=== PATIENT | male | born 1970 | race Caucasian/White ===

== ENCOUNTER 2023-08-11 14:50 | Inpatient (IN) | payer SELFPAY ==
[2023-08-11] VITALS (13 sets, daily range): BP systolic 120–154; BP diastolic 76–103; PULSE 71–106; RESP 18–40; TEMP 37.2–37.7; O2SAT 70–94; BMI 27.5
--- NOTE | 2023-08-11 14:58 | ECG_ITS ---
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 Measurements Intervals [place] Rate: 79 P: 65 CO: 152 QRS: 56 QRSD: 100 T: 48 QT: 340 QTc: 390 Interpretive Statements SINUS RHYTHM POSSIBLE RIGHT ATRIAL ENLARGEMENT [0.25mV P-WAVE] LEFT ATRIAL ENLARGEMENT [-0.15mV P-WAVE IN V1/V2] POSSIBLE RIGHT VENTRICULAR CONDUCTION DELAY [RSR (QR) IN V1/V2] POSSIBLE LEFT VENTRICULAR HYPERTROPHY [VOLTAGE CRITERIA PLUS LAE OR QRS WIDENING] No previous ECG available for comparison Electronically Signed On 08-15-2023 13:18:11 CDT by George Maurer M.D. [id number]
--- NOTE | 2023-08-11 14:58 | XRR_ITS ---
PROCEDURE INFORMATION: Exam: XR Chest Exam date and time: 08/11/2023 3:09 PM Age: 53 years old Clinical indication: Pain; Angina pectoris; Additional info: Chest pain TECHNIQUE: Imaging protocol: Radiologic exam of the chest. Views: 1 view. COMPARISON: No relevant prior studies available. FINDINGS: Lungs: Scattered curvilinear scarring peripherally. Peribronchial wall thickening. No consolidation. Pleural spaces: Unremarkable. No pleural effusion. No pneumothorax. Heart/Mediastinum: Unremarkable. No cardiomegaly. Bones/joints: Unremarkable. XR/XR chest 1V portable [id number] IMPRESSION: Peribronchial wall thickening consistent with an infectious or inflammatory bronchitis.
[2023-08-11 16:22] LABS: Basophils % 0.2 %; Eosinophils # 0.3 10^3/uL (0.0-0.8); Eosinophils % 1.9 %; Hematocrit 46.3 % (37-53); Lymphocytes # 0.5 10^3/uL (0.8-4.8); Lymphocytes % 3.2 %; Mean Corpuscular Hemoglobin 30.6 pg (27-33); Mean Corpuscular Volume 87.5 fl (82-101); Mean Platelet Volume 9.5 fL (7.4-10.4); Monocytes # 0.9 10^3/uL (0.2-0.9); Monocytes % 5.8 %; Nucleated Red Blood Cells % 0 %; Platelet Count 246 10^3/cmm (157-399); Red Blood Count 5.29 10^6/uL (3.85-5.65); Red Cell Distribution Width 11.8 % (12.1-15.1)
[2023-08-11 16:45] LABS: Troponin(5th) Baseline 9 ng/L (0-15)
--- NOTE | 2023-08-11 16:49 | ECG_ITS ---
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 Measurements Intervals [place] Rate: 67 P: 70 IN: 161 QRS: 64 QRSD: 88 T: 53 QT: 347 QTc: 368 Interpretive Statements SINUS RHYTHM POSSIBLE RIGHT ATRIAL ENLARGEMENT [0.25mV P-WAVE] LEFT ATRIAL ENLARGEMENT [-0.15mV P-WAVE IN V1/V2] POSSIBLE RIGHT VENTRICULAR CONDUCTION DELAY [RSR (QR) IN V1/V2] Compared to ECG 08/11/2023 14:54:48 No significant changes Electronically Signed On 08-15-2023 13:45:55 CDT by George Maurer M.D. [id number]
[2023-08-11 16:53] LABS: Glucose Point of Care 115 mg/dL (70-110)
[2023-08-11 17:12] LABS: Alanine Aminotransferase 17 U/L (0-41); Albumin Level 4.5 g/dL (3.5-5.2); Alkaline Phosphatase 77 U/L (40-130); Anion Gap 14.5 (5-19); Aspartate Amino Transferase 13 U/L (0-40); Blood Urea Nitrogen 11 mg/dL (6-20); Calcium 9.3 mg/dL (8.5-10.5); Carbon Dioxide 25 mmol/L (22-29); Chloride 97 mmol/L (98-107); Glomerular Filtration Rate 101.9 mL/min (90-130); Glucose 111 mg/dL (65-115); Osmolality Calculated 274 mOsm/kg (285-295); Potassium 4.5 mmol/L (3.5-5.1); Sodium 132 mmol/L (136-145); Total Bilirubin 1.1 mg/dL (0.15-1.2); Total Protein 7.5 g/dL (6.6-8.7)
--- NOTE | 2023-08-11 17:12 | PC.NURSE ---
Pt HR in 40s, put patient on 4L of oxygen. Pt HR now in 90s. Pt states feels like oxygen is breaking things up and feels better on oxygen. Pt is spitting up secretions. Turned oxygen down to 3L.
--- NOTE | 2023-08-11 17:17 | ED_ITS ---
HPI - Chest Pain 2 General: Chief Complaint: Chest Pain Stated Complaint: SOb, chest pains Time Seen by Provider: 08/11/23 16:42 Source: patient Mode of arrival: ambulatory Limitations: no limitations History of Present Illness: 53-year-old male states that over the day has been having fever he is also been having chest pain that is been sharp in nature with increased cough and feeling short of breath he has no history of CHF he states his pain is only when he coughs or breathes he states that he has had subjective fevers at home. Denies any vomiting or diarrhea. Associated symptoms: Reports dyspnea and fever(s); Deny abdominal pain, nausea or vomiting Review of Systems 2 Const: Reports: fever(s), chills and body aches; Denies: change in appetite Eyes: Denies: blurry vision or eye discomfort ENMT: Denies: throat pain or dental pain Card: Reports: chest pain Resp: Reports: dyspnea, non-productive cough and wheezing GI: Denies: abdominal pain, nausea, vomiting or diarrhea Musc: Denies: neck pain or back pain Skin/Breast: Denies: rash Neuro: Denies: headache(s) PFSH ED 2 PFSH: Medical History No pertinent past medical history Surgical History History of vasectomy Family History Other No pertinent family history Social History Smoking and tobacco/nicotine status: former use of tobacco/nicotine Alcohol intake: current Alcohol intake frequency: 3 or more drinks per day Substance/Drug Use: never Physical Exam 2 Const: COMMON NORMALS: no acute distress, patient oriented x3 and healthy appearing HENMT: COMMON NORMALS: normocephalic and atraumatic HEAD & SCALP: n ormocephalic and atraumatic Eye: COMMON NORMALS: Equal, round and reactive pupils present and EOMs intact bilaterally PUPIL: Yes Equal, round and reactive pupils present Neck/C-Spine: COMMON NORMALS: full ROM and supple Chest: COMMONS NORMALS: normal inspection of the chest Resp: COMMON NORMALS: normal respiratory effort, No retractions and No use of accessory muscles AUSCULTATION: rhonchi and wheezes Cardio: COMMON NORMALS: regular rate, regular rhythm and No murmurs present (Cardio) RATE: regular rate RHYTHM: regular rhythm GI: COMMON NORMALS: Normal to inspection, nondistended, normoactive bowel sounds present, Soft to palpation, non-tender and no masses PALPATION: Yes Soft to palpation Extremity: COMMON NORMALS: normal to inspection and full ROM Neuro: COMMON NORMALS: patient oriented x3, moves all extremities and no focal motor deficits Psych: COMMON NORMALS: mental status grossly normal, Normal thought process present and cooperative THOUGHT PROCESS: Normal thought process present Skin: COMMON NORMALS: no rashes or lesions noted and no wounds GENERAL SKIN EXAM: no rashes or lesions noted Course 2 Vital Signs: Vital signs: Vital Signs Temperature 99.0 F 08/11/23 15:00 Pulse Rate 96 08/11/23 18:00 Respiratory Rate 24 H 08/11/23 18:00 Blood Pressure 139/85 08/11/23 18:00 Pulse Oximetry 90 08/11/23 18:00 Oxygen Delivery Me thod Nasal Cannula 08/11/23 17:20 Oxygen Flow Rate 3 08/11/23 17:20 MDM - Chest Pain Medical Decision Making Patient presents here with fever cough congestion x-ray does show pneumonia his blood pressure here has been stable lactate is normal no signs of severe sepsis he is requiring oxygen here I spoke to hospitalist will admit at this time for IV antibiotics. Medical Records I reviewed the patient's medical records. Lab Data I reviewed the patient's lab results. 08/11/23 16:13 08/11/23 16:13 Radiology Impressions Chest X-Ray 08/11/23 14:58 IMPRESSION: Peribronchial wall thickening consistent with an infectious or inflammatory bronchitis. Laboratory Results WBC 15.10 10^3/uL (3.29-11.43) H 08/11/23 16:13 RBC 5.29 10^6/uL (3.85-5.65) 08/11/23 16:13 Hgb 16.20 g/dL (11.27-16.99) 08/11/23 16:13 Hct 46.3 % (37-53) 08/11/23 16:13 MCV 87.5 fl (82-101) 08/11/23 16:13 MCH 30.6 pg (27-33) 08/11/23 16:13 MCHC 35.0 g/dL (30-55) 08/11/23 16:13 RDW 11.8 % (12.1-15.1) L 08/11/23 16:13 Plt Count 246 10^3/cmm (157-399) 08/11/23 16:13 MPV 9.5 fL (7.4-10.4) 08/11/23 16:13 Neut % (Auto) 88.0 % 08/11/23 16:13 Lymph % (Auto) 3.2 % 08/11/23 16:13 Piatt % (Auto) 5.8 % 08/11/23 16:13 Eos % (Auto) 1.9 % 08/11/23 16:13 Baso % (Auto) 0.2 % 08/11/23 16:13 Neut # (Auto) 13.30 10^3/uL (1.8-7.7) H 08/11/23 16:13 Lymph # (Auto) 0.5 10^3/uL (0.8-4.8) L 08/11/23 16:13 Piatt # (Auto) 0.9 10^3/uL (0.2-0.9) 08/11/23 16:13 Eos # (Auto) 0.3 10^3/uL (0.0-0.8) 08/11/23 16:13 Baso # (Auto) 0.0 10^3/uL (0.0-0.1) 08/11/23 16:13 Nucleated RBC % (auto) 0 % 08/11/23 16:13 Nucleated RBCs # 0.0 /100WBC 08/11/23 16:13 Sodium 132 mmol/L (136-145) L 08/11/23 16:13 Potassium 4.5 mmol/L (3.5-5.1) 08/11/23 16:13 Chloride 97 mmol/L (98-107) L 08/11/23 16:13 Carbon Dioxide 25 mmol/L (22-29) 08/11/23 16:13 Anion Gap 14.5 (5-19) 08/11/23 16:13 BUN 11 mg/dL (6-20) 08/11/23 16:13 Creatinine 0.8 mg/dL (0.7-1.2) 08/11/23 16:13 GFR Calculation 101.9 mL/min (90-130) 08/11/23 16:13 Glucose 111 mg/dL (65-115) 08/11/23 16:13 POC Glucose 115 mg/dL (70-110) H 08/11/23 16:42 Calculated Osmolality 274 mOsm/kg (285-295) L 08/11/23 16:13 Lactic Acid 1.9 mmol/L (0.5-2.2) 08/11/23 16:13 Calcium 9.3 mg/dL (8.5-10.5) 08/11/23 16:13 Total Bilirubin 1.1 mg/dL (0.15-1.2) 08/11/23 16:13 AST 13 U/L (0-40) 08/11/23 16:13 ALT 17 U/L (0-41) 08/11/23 16:13 Alkaline Phosphatase 77 U/L (40-130) 08/11/23 16:13 Troponin T Baseline 9 ng/L (0-15) 08/11/23 16:13 Total Protein 7.5 g/dL (6.6-8.7) 08/11/23 16:13 Albumin 4.5 g/dL (3.5-5.2) 08/11/23 16:13 Globulin 3.0 g/dL (1.3-4.6) 08/11/23 16:13 All radiology interpretation(s) finalized by discharge EKG Data EKG 1: I personally reviewed and interpreted this EKG as follows: EKG interpretation date: 08/11/23 EKG interpretation time: 16:49 Interpretation: nsr hr [address] or t wave abnormalities qrs 88 qtc 363 Discharge Plan Discharge Patient Disposition: Admitted As Inpatient Admit Provider: Ashish Snowden Clinical Impression: Pneumonia, Acute respiratory failure with hypoxemia Condition: Stable Coding Level of Care Code ED Personnel Security Specialist for Tracy Koo
[2023-08-11] MEDS: methylPREDNISolone sod succ 125 mg/2 mL INJ IVP (17:28)
[2023-08-11] MEDS: acetaminophen 500 mg Tablet 1000 MG PO (17:28)
[2023-08-11] MEDS: sodium chloride 0.9% 1,000 ML 999 ML IV (17:31)
[2023-08-11] MEDS: cefTRIAXone 1,000 MG in sodium chloride 0.9% (plus) 50 ML 100 MG IV (17:32)
[2023-08-11 17:58] LABS: Lactic Sepsis W/Reflex 1.9 mmol/L (0.5-2.2)
--- NOTE | 2023-08-11 18:01 | PC.NURSE ---
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 Pt stated only seafood . During administration of solu-medrol, pt stated he had an allergic reaction to steriod back in 2019. Pt stated steriod made me break out in hives. Med was already being pushed when stated by pt. Med was pushed over 20 minutes, vital signs remained stable throughout. After admin, vitals were 91 HR, 90 o2, 139/85 BP, 20 RR.
--- NOTE | 2023-08-11 18:08 | CTR_ITS ---
PROCEDURE INFORMATION: Exam: CTA Chest With Contrast Exam date and time: 08/11/2023 6:23 PM Age: 53 years old Clinical indication: Dyspnea; Additional info: SOB, chest pain, pna TECHNIQUE: Imaging protocol: Computed tomographic angiography of the chest with contrast. Exam focused on the arteries. 3D rendering (Not supervised by radiologist): MIP and/or 3D reconstructed images were created by the technologist. Radiation optimization: All CT scans at this facility use at least one of these dose optimization techniques: automated exposure control; mA and/or kV adjustment per patient size (includes targeted exams where dose is matched to clinical indication); or iterative reconstruction. Contrast material: OMNI 350; Contrast volume: 66 ml; Contrast route: INTRAVENOUS (IV); COMPARISON: CR (CHEST, ) 08/11/2023 3:09 PM RADIATION DOSE METRICS: Total DLP (mGy-cm): 522 FINDINGS: Pulmonary arteries: Normal. No pulmonary emboli. Aorta: Unremarkable. No aortic aneurysm. No aortic dissection. Lungs: Peribronchial wall thickening. Curvilinear areas of atelectasis or scarring scattered within the lungs. Focal consolidation in the anteromedial right middle lobe. Subtle areas of ground-glass opacity in the lung bases. No masses. Pleural spaces: Unremarkable. No pneumothorax. No pleural effusion. Heart: Unremarkable. No cardiomegaly. No pericardial effusion. Lymph nodes: Mediastinal and hilar adenopathy noted. Bones/joints: Unremarkable. No acute fracture. Soft tissues: Unremarkable. CT/CT angio chest PE protcl [id number] IMPRESSION: 1. Negative for pulmonary embolism. 2. Peribronchial wall thickening again suggestive of bronchitis. There is a more focal consolidation in the anteromedial right middle lobe and subtle ground-glass opacities in the lung bases which could reflect pneumonia. 3. Mediastinal and hilar adenopathy, nonspecific, could be reactive to the findings described above.
[2023-08-11] MEDS: azithromycin 500 MG in sodium chloride 0.9% 250 ML 250 MG IV (18:09)
[2023-08-11] MEDS: ipratropium-albuterol 3 mL Neb INHALATION ×2 (18:11→21:34)
--- NOTE | 2023-08-11 18:12 | P.HP_ITS ---
Providers/Chief Complaint 2 Primary Care Provider: Antoine Charlton DO Chief Complaint: SOb, chest pains History of Present Illness Farhat Palmer is a 53 year old male with no significant past medical history, who reports fatigue, malaise, fevers, chills, chest pain, shortness of breath, pleurisy for the last 48 hours. Patient tells me that over the weekend he has been feeling well until about Friday, he got in the pool, and he did not feel well, yesterday he had fevers, chills, fatigue, malaise, shortness of breath, pleurisy, substernal chest pain, the anterior of his chest, nonradiating, associate with shortness of breath, no sick contacts, no recent travel, no hemoptysis, no calf pain, no calf swelling, does have a nonproductive cough at times, did report feeling lightheaded and dizzy at times, reports that he hydrates well, he works as a contractor, during our discussion, with sentences his O2 sats would drop into the low 90s, on 5 L, became tachycardic, heart rates in the low 100s, does report shortness of breath, normotensive, low-grade fever, Review of Systems 2 Const: Reports: fever(s), chills, fatigue and malaise Card: Reports: chest pain Resp: Reports: dyspnea GI: Denies: abdominal pain Medications/Allergies Allergies Allergy/AdvReac Type Severity Reaction Status Date / Time shellfish derived Allergy ALGY-Anaphy Verified 08/11/23 15:05 laxis PFSH Acute 2 PFSH: Medical History No pertinent past medical history Surgical History History of vasectomy Family History Other No pertinent family history Social History Smoking and tobacco/nicotine status: former use of tobacco/nicotine Alcohol intake: current Alcohol intake frequency: 3 or more drinks per day Substance/Drug Use: never Vitals/I&O/Wt Last Vital Signs Temp 99.0 F 08/11/23 15:00 Pulse 94 06/17/24 17:20 Resp 18 08/11/23 17:20 BP 153/93 08/11/23 15:00 Pulse Ox 94 08/11/23 17:20 O2 Del Method Nasal Cannula 08/11/23 17:20 O2 Flow Rate 3 08/11/23 17:20 08/11/23 08/11/23 08/11/23 06:59 14:59 22:59 Intake Total 50 / 50 Balance 50 / 50 Weight last 48 hrs Weight 89.811 kg Physical Exam 2 Const: COMMON NORMALS: no acute distress and patient oriented x3 HENMT: COMMON NORMALS: normocephalic HEAD & SCALP: normocephalic Eye: COMMON NORMALS: Equal, round and reactive pupils present Neck/C-Spine: COMMON NORMALS: no JVD Lymph: LYMPHATIC: no lymphadenopathy noted Resp: COMMON NORMALS: normal respiratory effort, No retractions and No use of accessory muscles AUSCULTATION: wheezes Cardio: COMMON NORMALS: no JVD, regular rate, regular rhythm, S1 normal heart sound present and S2 normal heart sound present RATE: regular rate RHYTHM: regular rhythm HEART SOUNDS: S1 normal heart sound present and S2 normal heart sound present GI: COMMON NORMALS: Normal to inspection, nondistended, normoactive bowel sounds present, Soft to palpation and non-tender Extremity: COMMON NORMALS: no calf tenderness and no pedal edema Neuro: COMMON NORMALS: patient oriented x3, CN's II-XII intact bilaterally and moves all extremities Psych: COMMON NORMALS: mental status grossly normal Data 08/11/23 16:13 08/11/23 16:13 A&P Assessment and plan (1) Pneumonia: Qualifiers: Laterality: bilateral Pneumonia type: due to unspecified organism (2) Acute hypoxic respiratory failure: Plan Acute hypoxic respiratory failure ? Secondary to pneumonia ? Plan ? Sputum cultures, blood cultures ? Respiratory viral panel ? Urine bacterial antigens ? CT angiogram of the chest ? Pro-C[place], CRP ? Monitor respiratory status closely ? Continue Rocephin ? Continue azithromycin ? Continue IV fluids ? Will hold off on steroids for now ? Continue DuoNeb ? Monitor respiratory status closely ? Full code ? Lovenox for DVT prophylaxis Attestations 2 Medical Necessity Statement*: Patient requires hospitalization, inpatient, greater than 2 midnights, for acute hypoxic respiratory failure secondary pneumonia Diagnoses Pneumonia J18.9 Laterality: bilateral Pneumonia type: due to unspecified organism Acute hypoxic respiratory failure J96.01
[2023-08-11] MEDS: iohexol 350 mg/mL 500 mL Btl (per mL) IV (18:36)
[2023-08-11 19:15] LABS: Troponin 5 2HR 11.01 ng/L (0-15); Troponin 5 2HR Delta 2.01 ABS# (0-10)
[2023-08-11 19:18] LABS: NT Pro B Type Natriuretic Pept 191 pg/mL (0-125); Procalcitonin 0.14 ng/mL (0-0.5)
[2023-08-11 19:29] LABS: C Reactive Protein 69.1 mg/L (0.0-4.9)
[2023-08-11 20:33] LABS: Adenovirus Not Detected (NOT DETECT); Chlamydia Pneumoniae Not Detected (NOT DETECT); Coronavirus 229E,HKU1,NL63,OC4 Not Detected (NOT DETECT); Human Metapneumovirus Not Detected (NOT DETECT); Human Rhinovirus/Enterovirus Not Detected (NOT DETECT); Influenza A Not Detected (NOT DETECT); Influenza A H1 Not Detected (NOT DETECT); Influenza A H1-2009 Not Detected (NOT DETECT); Influenza A H3 Not Detected (NOT DETECT); Influenza B Not Detected (NOT DETECT); Mycoplasma Pneumoniae Not Detected (NOT DETECT); Parainfluenza Virus Type 1 Not Detected (NOT DETECT); Parainfluenza Virus Type 2 Not Detected (NOT DETECT); Parainfluenza Virus Type 3 Not Detected (NOT DETECT); Parainfluenza Virus Type 4 Not Detected (NOT DETECT); Respiratory Syncytial Virus A Not Detected (NOT DETECT); Respiratory Syncytial Virus B Not Detected (NOT DETECT); SARS-COV-2 Not Detected (NOT DETECT)
--- NOTE | 2023-08-11 20:58 | ECG_ITS ---
[facility] Test Date: 2023-08-11 Pat Name: Farhat Palmer Department: Room: 252 Gender: Male General Farm Hand: : 1970 Requested By: Yesenia Orellana Order Number: [id number] Derrick MD: George Maurer M.D. Measurements Intervals [place] Rate: 69 P: 63 FL: 152 QRS: 57 QRSD: 98 T: 47 QT: 380 QTc: 407 Interpretive Statements SINUS RHYTHM POSSIBLE LEFT ATRIAL ENLARGEMENT [-0.1mV P-WAVE IN V1/V2] POSSIBLE RIGHT VENTRICULAR CONDUCTION DELAY [RSR (QR) IN V1/V2] Compared to ECG 08/11/2023 16:49:46 No significant changes Electronically Signed On 08-15-2023 13:47:11 CDT by George Maurer M.D. [id number]
[2023-08-11 21:16] LABS: Thyroid Stimulating Hormone 0.73 uIU/mL (0.27-4.20)
[2023-08-11] MEDS: pantoprazole 40 mg SDV IVP (21:25)
[2023-08-11] MEDS: enoxaparin 40 mg/0.4 mL Syringe SUBCUT (21:34)
[2023-08-11] MEDS: sodium chloride 0.9% 1,000 ML 75 ML IV (21:34)
[2023-08-11 23:55] LABS: Estmated Average Glucose 91; Hemoglobin A1C 4.8 % (4.0-6.0)
[2023-08-12] VITALS (15 sets, daily range): BP systolic 106–144; BP diastolic 58–86; PULSE 66–97; RESP 16–18; TEMP 36.4–38.9; O2SAT 91–98
[2023-08-12 01:14] LABS: Troponin 5 6HR 6.93 ng/L (0-15); Troponin 5 6HR Delta -2.07 ng/L (0-12)
[2023-08-12] MEDS: acetaminophen 325 mg Tablet 650 MG PO ×2 (02:11→14:22)
--- NOTE | 2023-08-12 03:53 | PC.NURSE ---
tylenol given at 0211 and cool washcloth and compress for temp of 100.6 not effective, temp up to 102.0 pt in shower now taking luke warm shower.
[2023-08-12] MEDS: ibuprofen 800 mg tablet PO ×2 (04:29→12:19)
[2023-08-12 05:03] LABS: Basophils % 0.1 %; Eosinophils # 0.1 10^3/uL (0.0-0.8); Eosinophils % 0.5 %; Hematocrit 42.9 % (37-53); Lymphocytes # 0.3 10^3/uL (0.8-4.8); Lymphocytes % 1.6 %; Mean Corpuscular HGB Conc 34.3 g/dL (30-55); Mean Corpuscular Hemoglobin 30.1 pg (27-33); Mean Corpuscular Volume 87.9 fl (82-101); Mean Platelet Volume 10.1 fL (7.4-10.4); Monocytes # 0.6 10^3/uL (0.2-0.9); Monocytes % 3.5 %; Neutrophils # 15.22 10^3/uL (1.8-7.7); Neutrophils % 92.9 %; Nucleated Red Blood Cells % 0 %; Platelet Count 246 10^3/cmm (157-399); Red Blood Count 4.88 10^6/uL (3.85-5.65); Red Cell Distribution Width 11.9 % (12.1-15.1); White Blood Count 16.41 10^3/uL (3.29-11.43)
[2023-08-12 05:22] LABS: Anion Gap 17.9 (5-19); Blood Urea Nitrogen 12 mg/dL (6-20); Calcium 8.6 mg/dL (8.5-10.5); Carbon Dioxide 23 mmol/L (22-29); Chloride 97 mmol/L (98-107); Creatinine Clr Calc Pharmacy 114.5348; Glucose 189 mg/dL (65-115); Osmolality Calculated 283 mOsm/kg (285-295); Potassium 3.9 mmol/L (3.5-5.1); Sodium 134 mmol/L (136-145)
[2023-08-12] MEDS: sodium chloride 0.9% 1,000 ML 75 ML IV (07:52)
[2023-08-12] MEDS: ipratropium-albuterol 3 mL Neb INHALATION ×2 (08:21→14:16)
--- NOTE | 2023-08-12 09:42 | PC.CHAP ---
Pastoral Care Encounter/Spiritual Assessment Type of Contact [] Declined mechanic chief visit [] Patient/Family/Request visit [] Outpatient visit [] Follow-up visit [] Physician referral [] Code/Alert [x] Routine visit [] Staff referral [] Actively dying [] Patient sleeping [x] Family support [] [] Out of room [] Palliative care [] [] Receiving care in room [] Pre-surgical visit [] Trauma [] Long length of stay [] ICU visit [] Other: Relational/Emotional Strength [x] Patient feels connected with others/family/visitors/staff [] Distress [] Loneliness/isolation [] Abandonment Spirituality of Patient [] Person of Neris [] Attends Druze of their Neris [] Believes in Prayer [] Reads Bible or Gnosticism materials [] There are Spiritual issues to be addressed Animal Attendants And Trainers Interventions [x] Prayer [] Active listening [] Non-anxious presence [] Spiritual/emotional support [] Crisis/trauma care [] Spiritual counseling [] Bereavement support [] Provided bereavement packet [] Provided Bible/devotional materials [] Provided toy/stuffed animal, coloring book to patient or family member [] Provided Communion [] Anointing/[place] [] Salvation [] Completed spiritual assessment [] Other: Impact on Illness or Injury [] Angry [] Fearful [] Anxious [] Often cries [] Exhaustion [] Unable to work [] Unable to attend episcopalian [] Unable to walk/stand [] Unable to read [] Unable to drive [] Unable to eat/drink [] Unable to sleep [] Unable to be with family [] Patient intubated [] Other: Summary Time spent with patient <5 min
--- NOTE | 2023-08-12 13:07 | P.PN_ITS ---
Subjective 2 Subjective: Patient was seen this morning, febrile throughout the night, does report weakness, fatigue, currently on 3 L, Vitals/I&O/Wt Last Vital Signs Temp 98.5 F 08/12/23 11:22 Pulse 77 08/12/23 11:22 Resp 16 08/12/23 11:22 BP 144/84 08/12/23 11:22 Pulse Ox 98 08/12/23 11:22 O2 Del Method Nasal Cannula 08/12/23 11:22 O2 Flow Rate 3 08/12/23 08:15 08/11/23 08/12/23 08/12/23 22:59 06:59 14:59 Intake Total 1540 / 1540 240 / 1780 1132.5 / 1132.5 Output Total 350 / 350 1200 / 1200 Balance 1540 / 1540 -110 / 1430 -67.5 / -67.5 Weight last 48 hrs Weight 92.079 kg Weight 92.079 kg Weight 89.811 kg Physical Exam 2 Const: COMMON NORMALS: no acute distress and patient oriented x3 Resp: COMMON NORMALS: normal respiratory effort, No retractions and No use of accessory muscles AUSCULTATION: wheezes Cardio: COMMON NORMALS: regular rate, regular rhythm, S1 normal heart sound present and S2 normal heart sound present RATE: regular rate RHYTHM: r egular rhythm HEART SOUNDS: S1 normal heart sound present and S2 normal heart sound present GI: COMMON NORMALS: Normal to inspection, nondistended, normoactive bowel sounds present and non-tender Extremity: COMMON NORMALS: no pedal edema Neuro: COMMON NORMALS: patient oriented x3 Psych: COMMON NORMALS: mental status grossly normal Data 08/12/23 04:20 08/12/23 04:20 Micro: Microbiology 08/12/23 02:08 Bacterial Antigens - Final Urine,Clean Catch 08/11/23 18:45 Blood Culture - Preliminary Blood SPECIMEN COLLECTED 08/11/23 18:47 Blood Culture - Preliminary Blood SPECIMEN COLLECTED A&P Assessment and plan (1) Pneumonia: Qualifiers: Laterality: bilateral Pneumonia type: due to unspecified organism (2) Acute hypoxic respiratory failure: Plan Acute hypoxic respiratory failure ? Secondary to pneumonia ? Plan ? Sputum cultures, blood cultures ? Respiratory viral panel so far negative ? Urine bacterial antigens ? CT angiogram of the chest CT/CT angio chest PE protcl [id number] IMPRESSION: 1. Negative for pulmonary embolism. 2. Peribronchial wall thickening again suggestive of bronchitis. There is a more focal consolidation in the anteromedial right middle lobe and subtle ground-glass opacities in the lung bases which could reflect pneumonia. 3. Mediastinal and hilar adenopathy, nonspecific, could be reactive to the findings described above. ? Monitor respiratory status closely ? Continue Rocephin ? Continue azithromycin ? Continue IV fluids ? Lasix 40 mg IV twice daily ? Continue DuoNeb ? Monitor respiratory status closely ? Full code ? Lovenox for DVT prophylaxis Plan for today continue IV antibiotics start steroids, will de-escalate fluid therapy Attestations 2 Medical Necessity Statement*: Patient requires hospitalization for acute hypoxic respiratory failure secondary to pneumonia Diagnoses Pneumonia J18.9 Laterality: bilateral Pneumonia type: due to unspecified organism Acute hypoxic respiratory failure J96.01
[2023-08-12] MEDS: methylPREDNISolone sod succ 40 mg/mL INJ IVP (14:20)
[2023-08-12] MEDS: azithromycin 500 MG in sodium chloride 0.9% 250 ML 250 MG IV (16:47)
[2023-08-12] MEDS: cefTRIAXone 1,000 MG in sodium chloride 0.9% (plus) 50 ML 100 MG IV (16:48)
[2023-08-12] MEDS: enoxaparin 40 mg/0.4 mL Syringe SUBCUT (20:41)
[2023-08-12] MEDS: pantoprazole 40 mg SDV IVP (21:13)
[2023-08-13] VITALS (11 sets, daily range): BP systolic 111–142; BP diastolic 69–77; PULSE 51–76; RESP 16–18; TEMP 36.6–37.5; O2SAT 94–96
[2023-08-13] MEDS: methylPREDNISolone sod succ 40 mg/mL INJ IVP ×2 (02:11→12:27)
[2023-08-13] MEDS: ibuprofen 800 mg tablet PO ×2 (02:18→20:57)
--- NOTE | 2023-08-13 17:11 | P.PN_ITS ---
Subjective 2 Subjective: Patient was seen this morning, continues to complain of shortness of breath, wheezing, but overall improved, afebrile overnight, Vitals/I&O/Wt Last Vital Signs Temp 98.2 F 08/13/23 16:19 Pulse 66 08/13/23 16:19 Resp 18 08/13/23 16:19 BP 137/77 08/13/23 16:19 Pulse Ox 95 08/13/23 16:19 O2 Del Method Nasal Cannula 08/13/23 16:19 O2 Flow Rate 2 08/13/23 09:29 08/13/23 08/13/23 08/13/23 06:59 14:59 22:59 Intake Total 920 / 920 Balance 920 / 920 Weight last 48 hrs Weight 89.584 kg Weight 92.079 kg Weight 92.079 kg Physical Exam 2 Const: COMMON NORMALS: no acute distress and patient oriented x3 Resp: COMMON NORMALS: normal respiratory effort, No retractions and No use of accessory muscles AUSCULTATION: wheezes Cardio: COMMON NORMALS: regular rate, regular rhythm, S1 normal heart sound present and S2 normal heart sound present RATE: regular rate RHYTHM: r egular rhythm HEART SOUNDS: S1 normal heart sound present and S2 normal heart sound present GI: COMMON NORMALS: Normal to inspection, nondistended, normoactive bowel sounds present and non-tender Extremity: COMMON NORMALS: no pedal edema Neuro: COMMON NORMALS: patient oriented x3 Psych: COMMON NORMALS: mental status grossly normal Data 08/12/23 04:20 08/12/23 04:20 Micro: Microbiology 08/11/23 22:24 Gram Stain - Final Sputum - Expectorated Sputum Sputum Culture - Preliminary 08/11/23 18:45 Blood Culture - Preliminary Blood NEGATIVE TO DATE 08/11/23 18:47 Blood Culture - Preliminary Blood NEGATIVE TO DATE A&P Assessment and plan (1) Pneumonia: Qualifiers: Laterality: bilateral Pneumonia type: due to unspecified organism (2) Acute hypoxic respiratory failure: Plan Acute hypoxic respiratory failure ? Secondary to pneumonia ? Plan ? Sputum cultures, blood cultures ? Respiratory viral panel so far negative ? Urine bacterial antigens ? CT angiogram of the chest CT/CT angio chest PE protcl [id number] IMPRESSION: 1. Negative for pulmonary embolism. 2. Peribronchial wall thickening again suggestive of bronchitis. There is a more focal consolidation in the anteromedial right middle lobe and subtle ground-glass opacities in the lung bases which could reflect pneumonia. 3. Mediastinal and hilar adenopathy, nonspecific, could be reactive to the findings described above. ? Monitor respiratory status closely ? Continue Rocephin ? Continue azithromycin ? Continue IV fluids ? Lasix 40 mg IV twice daily ? Continue DuoNeb ? Monitor respiratory status closely ? Full code ? Lovenox for DVT prophylaxis Plan for today continue IV antibiotics start steroids, Attestations 2 Medical Necessity Statement*: Patient requires hospitalization for pneumonia, requiring IV antibiotics, steroids, Diagnoses Pneumonia J18.9 Laterality: bilateral Pneumonia type: due to unspecified organism Acute hypoxic respiratory failure J96.01
[2023-08-13] MEDS: azithromycin 500 MG in sodium chloride 0.9% 250 ML 250 MG IV (17:17)
[2023-08-13] MEDS: cefTRIAXone 1,000 MG in sodium chloride 0.9% (plus) 50 ML 100 MG IV (17:18)
[2023-08-13] MEDS: pantoprazole 40 mg SDV IVP (20:05)
[2023-08-13] MEDS: enoxaparin 40 mg/0.4 mL Syringe SUBCUT (20:57)
[2023-08-14] VITALS (9 sets, daily range): BP systolic 110–144; BP diastolic 72–88; PULSE 51–70; RESP 16–17; TEMP 36.4–37.1; O2SAT 93–98
[2023-08-14] MEDS: methylPREDNISolone sod succ 40 mg/mL INJ IVP (01:17)
[2023-08-14 05:16] LABS: Basophils % 0.2 %; Eosinophils # 0.8 10^3/uL (0.0-0.8); Eosinophils % 7.3 %; Hematocrit 40.6 % (37-53); Lymphocytes % 9.1 %; Mean Corpuscular HGB Conc 34.2 g/dL (30-55); Mean Corpuscular Hemoglobin 30.3 pg (27-33); Mean Corpuscular Volume 88.5 fl (82-101); Mean Platelet Volume 10.2 fL (7.4-10.4); Monocytes # 0.7 10^3/uL (0.2-0.9); Neutrophils # 8.65 10^3/uL (1.8-7.7); Nucleated Red Blood Cells % 0 %; Platelet Count 261 10^3/cmm (157-399); Red Blood Count 4.59 10^6/uL (3.85-5.65); Red Cell Distribution Width 11.9 % (12.1-15.1); White Blood Count 11.24 10^3/uL (3.29-11.43)
[2023-08-14 05:40] LABS: Anion Gap 14.5 (5-19); Blood Urea Nitrogen 17 mg/dL (6-20); Calcium 8.7 mg/dL (8.5-10.5); Carbon Dioxide 27 mmol/L (22-29); Chloride 102 mmol/L (98-107); Creatinine Clr Calc Pharmacy 127.3096; Glomerular Filtration Rate 101.9 mL/min (90-130); Glucose 124 mg/dL (65-115); Osmolality Calculated 291 mOsm/kg (285-295); Potassium 4.5 mmol/L (3.5-5.1); Sodium 139 mmol/L (136-145)
[2023-08-14] MEDS: ipratropium-albuterol 3 mL Neb INHALATION (08:02)
--- NOTE | 2023-08-14 10:44 | P.DS_ITS ---
Discharge Providers Date of Admission: 08/11/23 18:17 Date of Discharge: August 14, 2023 Attending Provider at Admission: Ashish Snowden MD Attending Provider at Discharge: Ashish Snowden MD Primary Care Provider: Antoine Charlton DO Diagnoses at Discharge Discharge Diagnosis (1) Pneumonia: Status: Acute Qualifiers: Laterality: bilateral Pneumonia type: due to unspecified organism (2) Acute hypoxic respiratory failure: Status: Acute Reason for Visit Reason for Visit: SOb, chest pains Hospital Course Hospital Course Farhat Palmer is a 53 year old male with no significant past medical history, who reports fatigue, malaise, fevers, chills, chest pain, shortness of breath, pleurisy for the last 48 hours. Patient tells me that over the weekend he has been feeling well until about Friday, he got in the pool, and he did not feel well, yesterday he had fevers, chills, fatigue, malaise, shortness of breath, pleurisy, substernal chest pain, the anterior of his chest, nonradiating, associate with shortness of breath, no sick contacts, no recent travel, no hemoptysis, no calf pain, no calf swelling, does have a nonproductive cough at times, did report feeling lightheaded and dizzy at times, reports that he hydrates well, he works as a contractor, during our discussion, with sentences his O2 sats would drop into the low 90s, on 5 L, became tachycardic, heart rates in the low 100s, does report shortness of breath, normotensive, low-grade fever, This is a 53-year-old male who presents [facility] for acute hypoxic respiratory failure secondary to pneumonia, CT findings as below 1. Negative for pulmonary embolism. 2. Peribronchial wall thickening again suggestive of bronchitis. There is a more focal consolidation in the anteromedial right middle lobe and subtle ground-glass opacities in the lung bases which could reflect pneumonia. 3. Mediastinal and hilar adenopathy, nonspecific, could be reactive to the findings described above. ? Monitor Patient was managed on broad-spectrum by therapy, fluid therapy steroid therapy, therapy overall clinically improved to room air at rest, remained afebrile, cultures so far remain unremarkable ? Will be discharged on albuterol, prednisone burst, antibiotics, with close follow-up with primary care provider as outpatient ? Given patient's anterior medial right middle lobe focal consolidation with mediastinal hilar adenopathy, patient should undergo further imaging to ensure resolution, this should be followed up through primary care ? Also consider referral for pulmonary function testing Physical Exam Const: COMMON NORMALS: no acute distress and patient oriented x3 Resp: COMMON NORMALS: normal respiratory effort, No retractions, No use of accessory muscles and clear to auscultation bilaterally AUSCULTATION: clear to auscultation bilaterally Cardio: COMMON NORMALS: regular rate, regular rhythm, S1 normal heart sound present and S2 normal heart sound present RATE: regular rate RHYTHM: regular rhythm HEART SOUNDS: S1 normal heart sound present and S2 normal heart sound present GI: COMMON NORMALS: Normal to inspection, nondistended, normoactive bowel sounds present and non-tender Extremity: COMMON NORMALS: no pedal edema Neuro: COMMON NORMALS: patient oriented x3 Psych: COMMON NORMALS: mental status grossly normal Discharge Data Studies Completed and Pending Completed Studies During Hospitalization Category Date Time Status CT angio chest PE protcl 10006 Stat Cat Scan 08/11/23 18:08 Completed XR chest 1V portable [id number] Urgent Exams 08/11/23 14:58 Completed Pending at discharge Category Date Time Status Basic Metabolic Panel AM LABS Lab 08/15/23 04:00 Ordered Basic Metabolic Panel AM LABS Lab 08/16/23 04:00 Ordered Blood Culture Stat Lab 08/11/23 18:45 Results Complete Blood Count w/Auto AM LABS Lab 08/15/23 04:00 Ordered Complete Blood Count w/Auto AM LABS Lab 08/16/23 04:00 Ordered Sputum Culture and Gram Stain Stat Lab 08/11/23 22:24 Results Radiology Impressions Chest X-Ray 08/11/23 14:58 IMPRESSION: Peribronchial wall thickening consistent with an infectious or inflammatory bronchitis. Chest CTA 08/11/23 18:08 IMPRESSION: 1. Negative for pulmonary embolism. 2. Peribronchial wall thickening again suggestive of bronchitis. There is a more focal consolidation in the anteromedial right middle lobe and subtle ground-glass opacities in the lung bases which could reflect pneumonia. 3. Mediastinal and hilar adenopathy, nonspecific, could be reactive to the findings described above. Laboratory Results WBC 11.24 10^3/uL (3.29-11.43) 08/14/23 04:10 RBC 4.59 10^6/uL (3.85-5.65) 08/14/23 04:10 Hgb 13.90 g/dL (11.27-16.99) 08/14/23 04:10 Hct 40.6 % (37-53) 08/14/23 04:10 MCV 88.5 fl (82-101) 08/14/23 04:10 MCH 30.3 pg (27-33) 08/14/23 04:10 MCHC 34.2 g/dL (30-55) 08/14/23 04:10 RDW 11.9 % (12.1-15.1) L 08/14/23 04:10 Plt Count 261 10^3/cmm (157-399) 08/14/23 04:10 MPV 10.2 fL (7.4-10.4) 08/14/23 04:10 Neut % (Auto) 77.0 % 08/14/23 04:10 Lymph % (Auto) 9.1 % 08/14/23 04:10 [place] % (Auto) 6.0 % 08/14/23 04:10 Eos % (Auto) 7.3 % 08/14/23 04:10 Baso % (Auto) 0.2 % 08/14/23 04:10 Neut # (Auto) 8.65 10^3/uL (1.8-7.7) H 08/14/23 04:10 Lymph # (Auto) 1.0 10^3/uL (0.8-4.8) 08/14/23 04:10 [place] # (Auto) 0.7 10^3/uL (0.2-0.9) 08/14/23 04:10 Eos # (Auto) 0.8 10^3/uL (0.0-0.8) 08/14/23 04:10 Baso # (Auto) 0.0 10^3/uL (0.0-0.1) 08/14/23 04:10 Nucleated RBC % (auto) 0 % 08/14/23 04:10 Nucleated RBCs # 0.0 /100WBC 08/14/23 04:10 Sodium 139 mmol/L (136-145) 08/14/23 04:10 Potassium 4.5 mmol/L (3.5-5.1) 08/14/23 04:10 Chloride 102 mmol/L (98-107) 08/14/23 04:10 Carbon Dioxide 27 mmol/L (22-29) 08/14/23 04:10 Anion Gap 14.5 (5-19) 08/14/23 04:10 BUN 17 mg/dL (6-20) 08/14/23 04:10 Creatinine 0.8 mg/dL (0.7-1.2) 08/14/23 04:10 GFR Calculation 101.9 mL/min (90-130) 08/14/23 04:10 Glucose 124 mg/dL (65-115) H 08/14/23 04:10 POC Glucose 115 mg/dL (70-110) H 08/11/23 16:42 Estimat Average Glucose 91 08/11/23 16:13 Hemoglobin A1c 4.8 % (4.0-6.0) 08/11/23 16:13 Calculated Osmolality 291 mOsm/kg (285-295) 08/14/23 04:10 Lactic Acid 1.9 mmol/L (0.5-2.2) 08/11/23 16:13 Calcium 8.7 mg/dL (8.5-10.5) 08/14/23 04:10 Total Bilirubin 1.1 mg/dL (0.15-1.2) 08/11/23 16:13 AST 13 U/L (0-40) 08/11/23 16:13 ALT 17 U/L (0-41) 08/11/23 16:13 Alkaline Phosphatase 77 U/L (40-130) 08/11/23 16:13 Troponin T Baseline 9 ng/L (0-15) 08/11/23 16:13 Troponin T 120 Minute 11.01 ng/L (0-15) 08/11/23 18:45 Delta Troponin T 2.01 ABS# (0-10) 08/11/23 18:45 Troponin T Hi Sens 6Hr 6.93 ng/L (0-15) 08/12/23 00:43 Troponin T Hi Sens 6Hr Delta -2.07 ng/L (0-12) L 08/12/23 00:43 C-Reactive Protein 69.1 mg/L (0.0-4.9) H 08/11/23 16:13 NT-Pro-B Natriuret Pep 191 pg/mL (0-125) H 08/11/23 16:13 Total Protein 7.5 g/dL (6.6-8.7) 08/11/23 16:13 Albumin 4.5 g/dL (3.5-5.2) 08/11/23 16:13 Globulin 3.0 g/dL (1.3-4.6) 08/11/23 16:13 Procalcitonin 0.14 ng/mL (0-0.5) 08/11/23 16:13 TSH 0.73 uIU/mL (0.27-4.20) 08/11/23 18:45 Adenovirus (PCR) Not detected (NOT DETECT) 08/11/23 18:35 C. pneumoniae DNA (PCR) Not detected (NOT DETECT) 08/11/23 18:35 Coronavirus 229E (PCR) Not detected (NOT DETECT) 08/11/23 18:35 Human Metapneumovir PCR Not detected (NOT DETECT) 08/11/23 18:35 Influenza A (H1) PCR Not detected (NOT DETECT) 08/11/23 18:35 Influ A (H1/09) PCR Not detected (NOT DETECT) 08/11/23 18:35 Influenza A (H3) PCR Not detected (NOT DETECT) 08/11/23 18:35 Influenza Type A (PCR) Not detected (NOT DETECT) 08/11/23 18:35 Influenza Type B (PCR) Not detected (NOT DETECT) 08/11/23 18:35 M. pneumoniae (PCR) Not detected (NOT DETECT) 08/11/23 18:35 Parainfluenza 1 (PCR) Not detected (NOT DETECT) 08/11/23 18:35 Parainfluenza 2 (PCR) Not detected (NOT DETECT) 08/11/23 18:35 Parainfluenza 3 (PCR) Not detected (NOT DETECT) 08/11/23 18:35 Parainfluenza 4 (PCR) Not detected (NOT DETECT) 08/11/23 18:35 RSV Type A (PCR) Not detected (NOT DETECT) 08/11/23 18:35 RSV Type B (PCR) Not detected (NOT DETECT) 08/11/23 18:35 Entero/Rhino (PCR) Not detected (NOT DETECT) 08/11/23 18:35 SARS-CoV-2 (PCR) Not detected (NOT DETECT) 08/11/23 18:35 Vitals Last Vital Signs Temp 97.5 F L 08/14/23 08:32 Pulse 52 L 08/14/23 08:32 Resp 17 08/14/23 08:32 BP 135/82 08/14/23 08:32 Pulse Ox 96 08/14/23 08:32 O2 Del Method Nasal Cannula 08/14/23 08:32 O2 Flow Rate 2 08/14/23 08:03 Discharge Plan Discharge Patient Disposition: Home Condition: Stable Prescriptions: New doxycycline hyclate 100 mg tablet 100 mg PO BID 7 Days Qty: 14 0RF prednisone 20 mg tablet 20 mg PO BID 5 Days Qty: 10 0RF albuterol sulfate 90 mcg/actuation HFA aerosol inhaler 1 inh inhalation Q6H PRN (Reason: shortness of breath or wheezing) Qty: 8.5 0RF (DME) Space Chamber Spacer See Rx Instructions .Route Qty: 1 0RF Rx Instructions: As directed Discharge Orders: Discharge Order (Routine); Ordered 08/14/23 Ordered By: Ashish Snowden Referrals: Antoine Charlton DO [Primary Care Provider] - 08/20/23 2:40 pm (appointment will be with Olena Cervantes-ULISES due to Dr Charlton being over booked) Discharge Diet: Cardiac Discharge Activity: Resume usual activity Patient Instructions: Opioid Safety Activity Restrictions/Additional Instructions: - Please hydrate well, turn for fevers, take antibiotics and steroids as prescribed ? Albuterol as needed for shortness of breath ? Follow-up with primary care ? In 1 month repeat chest x-ray ? Consider pulmonary function testing in 1 month -Patient had a anterior medial right middle lobe consolidation, with mediastinal and hilar adenopathy, make sure this is followed up as outpatient with repeat imaging to ensure resolution ? Consider referral to pulmonology based on clinical progress, Discharge Attestations Time Spent in Discharge Care*: greater than 30 min Quality Metrics Clinical Quality Measures [ No reported AMI, CVA or VTE this stay] Coding Level of Care Code 40580 Total time (in minutes) for Discharge: 45 Diagnoses Pneumonia J18.9 Laterality: bilateral Pneumonia type: due to unspecified organism Acute hypoxic respiratory failure J96.01
== END 2023-08-14 12:30 | disposition home or self-care (01) | DRG 193 ==
LOC: ER 18:01 → MEDSURG 18:17
PROVIDERS: Physician Assistant; Admitting Provider Family Medicine; Emergency Provider Emergency Medicine; PCP Internal Medicine; Visit Provider Family Medicine
DX: J18.9 Pneumonia, unspecified organism (principal); J96.01 Acute respiratory failure with hypoxia; Z87.891 Personal history of nicotine dependence
CPT/HCPCS: 36415; 36416; 71045; 71275; 80048; 80053; 82962; 83036; 83605; 83880; 84145; 84443; 84484; 85025; 86140; 86403; 87040; 87070; 87205; 87486; 87581; 87633; 93005; 94640; 94664; 94760; 96365; 96367; 96372; 96375; 99285; C9113; J0456; J0696; J1650; J2919; J7030; J7050; Q9967

== ENCOUNTER 2023-12-22 07:43 | Outpatient (CLI) | payer MEDICAID, SELFPAY ==
--- NOTE | 2023-12-22 07:50 | XRR_ITS ---
PROCEDURE INFORMATION: Exam: XR Right Knee Exam date and time: 12/22/2023 8:31 AM Age: 53 years old Clinical indication: Pain; Knee; Right; Additional info: Right knee pain TECHNIQUE: Imaging protocol: Radiologic exam of the right knee. Views: 3 views. COMPARISON: US ROR venous duplex LE RT 10/26/2020 1:52 PM FINDINGS: Bones/joints: The medial joint space is well maintained. The lateral joint space is well maintained. No fracture identified. Soft tissues: No knee joint effusion is present. XR/XR knee RT 3V* [id number] IMPRESSION: No evidence of acute fracture or dislocation.
--- NOTE | 2023-12-22 08:27 | XRR_ITS ---
PROCEDURE INFORMATION: Exam: XR Chest Exam date and time: 12/22/2023 8:31 AM Age: 53 years old Clinical indication: Condition or disease; Lung condition and disease; Pneumonia; Additional info: HX of pneumonia TECHNIQUE: Imaging protocol: Radiologic exam of the chest. Views: 2 views. COMPARISON: CT angio chest PE protcl [id number] 08/11/2023 6:23 PM FINDINGS: Lungs: The lung parenchyma is clear. Pleural spaces: No pneumothorax. No large pleural effusion. Heart/Mediastinum: The cardiomediastinal silhouette is within normal limits. Bones/joints: Unremarkable. XR/XR chest 2V* [id number] IMPRESSION: No acute cardiopulmonary abnormality.
== END 2023-12-22 07:44 | disposition home or self-care (01) ==
LOC: RAD 07:45
PROVIDERS: PCP Family Medicine; Visit Provider Family Medicine
DX: Z87.01 Personal history of pneumonia (recurrent) (principal); M25.561 Pain in right knee
CPT/HCPCS: 71046; 73562

== ENCOUNTER 2024-03-02 08:24 | Day surgery (SDC) | payer MEDICAID, SELFPAY ==
[2024-03-02 08:42] VITALS: BP 147/86; PULSE 58; RESP 18; TEMP 36.7; O2SAT 98; BMI 25.0
[2024-03-02] MEDS: sodium chloride 0.9% 500 ML 15 ML IV (09:06)
--- NOTE | 2024-03-02 09:23 | ANES.PREANE2 ---
Pre-Anesthetic Assessment Height/Weight: Height 1.83 m Weight 83.915 kg Temp Pulse Resp BP Pulse Ox O2 Del Method 98.0 F 58 L 18 147/86 98 Room Air 03/02/24 08:42 03/02/24 08:42 03/02/24 08:42 03/02/24 08:42 03/02/24 08:42 03/02/24 08:42 Operation Date: 03/02/24 09:30 Proposed Procedures p Colonoscopy - 76464, 89390, g0121, k12.11, k21.9(Not Applicable) - Aris Kim MD s EGD(Not Applicable) - Aris Kim MD Familial anesthetic complications: none Was Beta Pamela taken within 24 hours: N/A Was Clonidine taken within 24 hours: N/A Last intake: Intake Last Liquid Date 03/01/24 Last Liquid Time 23:00 Last Solid Date 02/29/24 Last Solid Time 20:00 Social No alcohol and No tobacco Exam alert, oriented x 3, clear to auscultation bilaterally and regular rate & rhythm Airway Submandibular: within normal limits Cervical ROM: within normal limits Mallampati: Class II Dentition: full GI Gastroesophageal Reflux Disease Metabolic Hyperlipidemia Anesthetic Plan ASA status: 2 Anesthesia: MAC Medications/Allergies Home Medications Medication Instructions Recorded Confirmed Last Taken Type celecoxib 200 mg capsule (Celebrex) 200 mg PO DAILY 12/25/23 02/26/24 03/01/24 History omeprazole 20 mg capsule,delayed 20 mg PO DAILY 12/25/23 02/26/24 03/01/24 History release atorvastatin 20 mg tablet 20 mg PO BEDTIME 02/26/24 03/02/24 02/29/24 History Allergies Allergy/AdvReac Type Severity Reaction Status Date / Time shellfish derived Allergy ALGY-Anaphy Verified 12/25/23 09:04 laxis Current Medications Generic Name Dose Route Start Last Admin Trade Name Freq PRN Reason Stop Dose Admin Sodium Chloride 500 mls @ 15 mls/hr 03/02/24 08:30 03/02/24 09:06 Sodium Chloride 0.9% IV 03/03/24 08:29 15 mls/hr .Q24H PRN Administration COLONOSCOPY FLUIDS PFSH Anesthesia Medical History No pertinent past medical history Surgical History (Updated 12/25/23 @ 09:12 by DRAKE Rahman) History of vasectomy Family History Other No pertinent family history Social History Smoking and tobacco/nicotine status: former use of tobacco/nicotine Alcohol intake: current Alcohol intake frequency: 3 or more drinks per day Substance/Drug Use: never Data Anesthesia Cardiac Studies: No Data to Display
--- NOTE | 2024-03-02 09:39 | W.PM.OPSFHP ---
Same Day Surgery H&P Indication for Procedure/HPI DATE OF PROCEDURE: March 02, 2024 CHIEF COMPLAINT/INDICATIONFOR SURGICAL PROCEDURE: GERD screening colonoscopy PREOP DIAGNOSIS: GERD screening colonoscopy PLANNED PROCEDURE: Operation Date: 03/02/24 09:30 Proposed Procedures p Colonoscopy - 16090, 23762, g0121, k12.11, k21.9(Not Applicable) - Aris Kim MD s EGD(Not Applicable) - Aris Kim MD Medications/Allergies* Home Medications Medication Instructions Recorded Confirmed Type celecoxib 200 mg capsule (Celebrex) 200 mg PO DAILY 12/25/23 02/26/24 History omeprazole 20 mg capsule,delayed 20 mg PO DAILY 12/25/23 02/26/24 History release atorvastatin 20 mg tablet 20 mg PO BEDTIME 02/26/24 03/02/24 History Allergies/Adverse Reactions Allergy/AdvReac Type Severity Reaction Status Date / Time shellfish derived Allergy ALGY-Anaphy Verified 12/25/23 09:04 laxis Current Medications: Generic Name Dose Route Start Last Admin Trade Name Freq PRN Reason Stop Dose Admin Sodium Chloride 500 mls @ 15 mls/hr 03/02/24 08:30 03/02/24 09:06 Sodium Chloride 0.9% IV 03/03/24 08:29 15 mls/hr .Q24H PRN Administration COLONOSCOPY FLUIDS Pertinent History/Comorbid Conditions* Medical History (Updated 08/15/23 @ 00:02 by ANYA Ball) No pertinent past medical history Surgical History (Updated 08/11/23 @ 18:14 by Ashish Snowden MD) History of vasectomy Family History (Updated 08/11/23 @ 18:15 by Ashish Snowden MD) No pertinent family history Social History Smoking and tobacco/nicotine status: former use of tobacco/nicotine Alcohol intake: current Alcohol intake frequency: 3 or more drinks per day Substance/Drug Use: never Pertinent Exam Findings alert, oriented x 3, clear to auscultation bilaterally, regular rate & rhythm and procedure specific exam findings Abdomen soft, nt, nd Recommendations Surgery/Procedure today Coding Level of Care Code Acute Code for Tracy Koo
[2024-03-02 10:52] VITALS: BP 132/81; PULSE 55; RESP 18; TEMP 36.4; O2SAT 97
[2024-03-02 11:07] VITALS: BP 127/78; PULSE 50; RESP 1; O2SAT 98
--- NOTE | 2024-03-02 13:52 | ANE.PACU2 ---
Inpatient post-anesthesia follow up: Airway intact: Yes Vital signs: Temperature 97.6 F Pulse Rate 50 Respiratory Rate 1 Blood Pressure 127/78 Pulse Oximetry 98 Oxygen Delivery Me thod Room Air Oxygen Flow Rate Fraction of Inspir ed Oxygen Hydration adequate: Yes Nausea and vomiting: No Pain level: 2 Mental status: Baseline
== END 2024-03-02 11:12 | disposition home or self-care (01) ==
PROVIDERS: PCP Family Medicine; Visit Provider Student in an Organized Health Care Education/Training Program
PROC: 0DJD8ZZ Inspection of Lower Intestinal Tract, Via Natural or Artificial Opening Endoscopic (ICD-10-PCS; CPT 45378; principal; 2024-03-02 09:30)
PROC: 0DJ08ZZ Inspection of Upper Intestinal Tract, Via Natural or Artificial Opening Endoscopic (ICD-10-PCS; 2024-03-02 09:30)
DX: Z12.11 Encounter for screening for malignant neoplasm of colon (principal); K21.9 Gastro-esophageal reflux disease without esophagitis; Z87.891 Personal history of nicotine dependence; K29.70 Gastritis, unspecified, without bleeding; E78.5 Hyperlipidemia, unspecified
CPT/HCPCS: 43239; 88305; G0121; J2704; J7040

== ENCOUNTER 2024-05-18 08:27 | Outpatient (CLI) | payer MEDICAID, SELFPAY | END 2024-05-18 08:28 | disposition home or self-care (01) | LOC: SOT 08:27 | PROVIDERS: PCP Family Medicine; Visit Provider Student in an Organized Health Care Education/Training Program | DX: Z46.89 Encounter for fitting and adjustment of other specified devices (principal); G56.03 Carpal tunnel syndrome, bilateral upper limbs | CPT/HCPCS: L3908 ==

== ENCOUNTER 2024-11-04 11:19 | Outpatient (CLI) | payer MEDICAID, SELFPAY ==
--- NOTE | 2024-11-04 11:20 | XRR_ITS ---
PROCEDURE INFORMATION: Exam: XR Lumbosacral Spine Exam date and time: 11/04/2024 11:31 AM Age: 54 years old Clinical indication: Injury or trauma; Other: Not specified; Sprain or strain, lumbar ligaments; Injury date: 2 days ago; 2 days injury to back, previous back pain but worsening after injury, slight numbness in legs; Additional info: Lumbar back pain TECHNIQUE: Imaging protocol: Radiologic exam of the lumbosacral spine. Views: 2 or 3 views. COMPARISON: No relevant prior studies available. FINDINGS: Bones/joints: Five lumbar-type vertebral bodies are demonstrated. No displaced fractures with preserved vertebral body heights. No subluxation. Straightening of the normal lumbar lordosis, which could be related to muscle spasm. 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 Mild disc space narrowing at multiple other levels. Vasculature: Mild atherosclerotic calcification in the abdominal aorta. XR/XR lumbar spine 2-3V* [id number] IMPRESSION: 1. No displaced fractures with preserved vertebral body heights. No subluxation. Straightening of the normal lumbar lordosis, which could be related to muscle spasm. 2. [id number] degenerative changes in the lower lumbar spine.
== END 2024-11-04 11:20 | disposition home or self-care (01) ==
LOC: RAD 11:19
PROVIDERS: PCP Family Medicine; Visit Provider Nurse Practitioner Family
DX: M54.50 Low back pain, unspecified (principal)
CPT/HCPCS: 72100

== ENCOUNTER 2024-12-16 15:53 | Emergency (ER) | payer MEDICAID, SELFPAY ==
--- OUTSIDE RECORDS SUMMARY | 2024-12-16 15:59 | XMS_ITS | Data Portability ---
Author Organization [facility] Efrem Mccord [facility] Maria De Jesus Mantilla [facility] Address [address] [address] Care Team Providers Care Vice President Payment Name Role Phone ANTOIEN CHARLTON Primary Care Provider Unavailabl e Assessment Encounter Date Assessment Date Assessment LastModified by Organization Details LastModified Time 10/21/2022 10/21/2022 We Discussed the risks and benefits of a vasectomy. We discussed the importance of bringing a semen sample 3 months after the vasectomy and using an alternate form of control until then. We reviewed the vasectomy consent form and discussed it. He had no further questions and wishes to schedule a vasectomy. Not available 10/21/2022 15:33:26 11/07/2022 11/07/2022 The procedure was unremarkable. We once again give the patient full instructions postvasectomy. He understands that he is to be very sedentary for the next couple of days and to be careful for the next week. Not available 11/08/2022 01:22:01 Plan of Treatment Reminders Order Date Submit Date Provider Last Modified By Organization Details Last Modified Time Details Appointments None recorded. Lab lipid panel, blood 2022 023 [email or web address] [facility] ([facility]), [address] [place], [address], 5 09:31:50 tick-borne disease panel 2022 023 [email or web address] 0 [facility], [address] [facility] [address], [address] [facility] [place], [address], 3 14:49:40 CMP, serum or plasma [address] ([facility]), [address] [place], [address], 5 09:31:16 CBC [address] ([facility]), [address] [place], [address], 5 09:31:28 TSH, serum or plasma 2022 023 [facility] ([facility]), [address] [place] [address], [address], 3 18:54:11 Referral surgery center referral 2022 023 [email or web address] 2 Not available 3 10:11:39 Procedures None recorded. Surgeries None recorded. Imaging None recorded. Medication Orders Percocet 5 mg-325 mg tablet [email or web address] [facility], [address], [place], [address], 4 16:18:27 Valium 10 mg tablet [address] [facility], [address], [place], [address], 4 16:18:41 Patient TargetsNo targets recorded. Patient Instructions Encounter Date Encounter Id Patient Instructions Last Modified By Organization Details Last Modified Time 08/12/2022 sounds like tick illness; labs now wants vasectomy Not available 08/12/2022 11:37:03 Reason for Referral Surgery Center Referral for Vasectomy planned Referring Physician: Antoine Charlton, Internal Medicine, Encounter Date: 08/12/2022 Results Created Date Observation Date Name Description Value Unit Range Abnormal Flag Note LastModifiedBy Organization Detail LastModifiedTime 08/13/19 23 08/18/2022 LIPID PANEL , STAND ELZBIETA cholesterol, total 282 mg/dL <200 high Not Available [address], [address], 08/18/2022 18:54:09 08/13/19 23 08/18/2022 LIPID PANEL , STAND ELZBIETA HDL cholesterol 79 mg/dL > or = 40 normal Not Available [place] [address] [facility] [place], [address], 08/18/2022 18:54:09 08/13/19 23 08/18/2022 LIPID PANEL , STAND ELZBIETA triglyceride s 128 mg/dL <150 normal Not Available [address], [address], 08/18/2022 18:54:09 08/13/19 23 08/18/2022 LIPID PANEL , STAND ELZBIETA LDL-choleste rol 177 mg/dL _(giacomo c) high Refer ence range : <100 Darci able range <100 mg/dL for prima ry preve ntion ; <70 mg/dL for patie nts with CHD or diabe tic patie nts with > or = 2 CHD risk facto rs. LDL-C is now calcu lated using the Meli n-Hop kins calcu misael n, which is a valid ated novel oj reza r accur acy than the Fried aaron equat ion in the estim ation of LDL-C . Meli turcios SS et al. MILY. 2013; 310(1 9): 2061- 2068 (http ://ed ucati on.Qu estDi [place] Thankyou[employer]. com/f aq/FA Q164) Not Available [address], [address], 08/18/2022 18:54:09 08/13/19 23 08/18/2022 LIPID PANEL , STAND ELZBIETA chol/HDLC ratio 3.6 (calc ) <5.0 normal Not Available [address], [place], [address], 08/18/2022 18:54:09 08/13/1908/18/2022 LIPID PANEL , STAND ELZBIETA non HDL cholesterol 203 mg/dL _(giacomo c) <130 high For patie nts with diabe rosalina plus 1 major ASCVD risk facto r, treat ing to a non-H DL-C goal of <100 mg/dL (LDL- C of <70 mg/dL ) is consi dered a thera peuti c optio n. Not Available [address] [address] [address] [place], [address], 08/18/2022 18:54:09 08/13/1908/18/2022 COMPR EHENS LUCILLE METAB OLIC PANEL glucose 90 mg/dL 65-99 normal Fasti ng refer ence inter lisa Not Available [facility] [place] [address] [place], [address], 08/18/2022 18:54:09 08/13/19 23 08/18/2022 COMPR EHENS LUCILLE METAB OLIC PANEL urea nitrogen (BUN) 13 mg/dL 7-25 normal Not Available [facility] [address], [address], 08/18/2022 18:54:09 08/13/19 23 08/18/2022 COMPR EHENS LUCILLE METAB OLIC PANEL creatinine 1.06 mg/dL 0.70-1 .30 normal Not Available [address] [place], [address], 08/18/2022 18:54:09 08/13/19 23 08/18/2022 COMPR EHENS LUCILLE METAB OLIC PANEL eGFR 85 mL/mi n/1.7 3m2 > or = 60 normal The eGFR is based on the CKD-E PI 2020 jamie ramirez. To calcu late the new eGFR from a previ ous Creat inine or Cysta jose ramon C resul t, go to https ://diamante blackwood.o rg/pr ofess ional s/ kdoqi /gfr% 5Fcal culat or Not Available [address], [address], 08/18/2022 18:54:09 08/13/19 23 08/18/2022 COMPR EHENS LUCILLE METAB OLIC PANEL BUN/creatini ne ratio NOT APPLIC ABLE (calc ) 6-22 Not Available [address], [address], 08/18/2022 18:54:09 08/13/19 23 08/18/2022 COMPR EHENS LUCILLE METAB OLIC PANEL sodium 138 mmol/ L 135-14 6 normal Not Available [address], [address], 08/18/2022 18:54:09 08/13/19 23 08/18/2022 COMPR EHENS LUCILLE METAB OLIC PANEL potassium 4.2 mmol/ L 3.5-5. 3 normal Not Available [address], [address], 08/18/2022 18:54:09 08/13/19 23 08/18/2022 COMPR EHENS LUCILLE METAB OLIC PANEL chloride 103 mmol/ L 98-110 normal Not Available [address], [address], 08/18/2022 18:54:09 08/13/19 23 08/18/2022 COMPR EHENS LUCILLE METAB OLIC PANEL carbon dioxide 28 mmol/ L 20-32 normal Not Available [address], [address], 08/18/2022 18:54:09 08/13/19 23 08/18/2022 COMPR EHENS LUCILLE METAB OLIC PANEL calcium 9.4 mg/dL 8.6-10 .3 normal Not Available [address], [address], 08/18/2022 18:54:09 08/13/19 23 08/18/2022 COMPR EHENS LUCILLE METAB OLIC PANEL protein, total 7.2 g/dL 6.1-8. 1 normal Not Available [address], [address], 08/18/2022 18:54:09 08/13/19 23 08/18/2022 COMPR EHENS LUCILLE METAB OLIC PANEL albumin 4.7 g/dL 3.6-5. 1 normal Not Available [address], [address], 08/18/2022 18:54:09 08/13/19 23 08/18/2022 COMPR EHENS LUCILLE METAB OLIC PANEL globulin 2.5 g/dL_ (calc ) 1.9-3. 7 normal Not Available [address], [address], 08/18/2022 18:54:09 08/13/19 23 08/18/2022 COMPR EHENS LUCILLE METAB OLIC PANEL albumin/glob ulin ratio 1.9 (calc ) 1.0-2. 5 normal Not Available [address], [address], 08/18/2022 18:54:09 08/13/19 23 08/18/2022 COMPR EHENS LUCILLE METAB OLIC PANEL bilirubin, total 0.6 mg/dL 0.2-1. 2 normal Not Available [address], [address], 08/18/2022 18:54:09 08/13/19 23 08/18/2022 COMPR EHENS LUCILLE METAB OLIC PANEL alkaline phosphatase 69 U/L 35-144 normal Not Available [address], [address], 08/18/2022 18:54:09 08/13/19 23 08/18/2022 COMPR EHENS LUCILLE METAB OLIC PANEL AST 24 U/L 10-35 normal Not Available [address], [address], 08/18/2022 18:54:09 08/13/19 23 08/18/2022 COMPR EHENS LUCILLE METAB OLIC PANEL ALT 27 U/L 9-46 normal Not Available [address], [address], 08/18/2022 18:54:09 08/13/19 23 08/18/2022 CBC (INCL UDES DIFF/ PLT) white blood cell count 5.8 thous and/u L 3.8-10 .8 normal Not Available [address], [address], 08/18/2022 18:54:10 08/13/19 23 08/18/2022 CBC (INCL UDES DIFF/ PLT) red blood cell count 4.89 eddie on/uL 4.20-5 .80 normal Not Available [address], [address], 08/18/2022 18:54:10 08/13/19 23 08/18/2022 CBC (INCL UDES DIFF/ PLT) hemoglobin 14.8 g/dL 13.2-1 7.1 normal Not Available [address], [address], 08/18/2022 18:54:10 08/13/1908/18/2022 CBC (INCL UDES DIFF/ PLT) hematocrit 43.4 % 38.5-5 0.0 normal Not Available [address], [address], 08/18/2022 18:54:10 08/13/19 23 08/18/2022 CBC (INCL UDES DIFF/ PLT) MCV 88.8 fL 80.0-1 00.0 normal Not Available [address] [place], [address], 08/18/2022 18:54:10 08/13/19 23 08/18/2022 CBC (INCL UDES DIFF/ PLT) MCH 30.3 pg 27.0-3 3.0 normal Not Available [address], [address], 08/18/2022 18:54:10 08/13/19 23 08/18/2022 CBC (INCL UDES DIFF/ PLT) MCHC 34.1 g/dL 32.0-3 6.0 normal Not Available [address], [address], 08/18/2022 18:54:10 08/13/19 23 08/18/2022 CBC (INCL UDES DIFF/ PLT) RDW 11.8 % 11.0-1 5.0 normal Not Available [address], [address], 08/18/2022 18:54:10 08/13/19 23 08/18/2022 CBC (INCL UDES DIFF/ PLT) platelet count 239 thous and/u L 140-40 0 normal Not Available [address], [address], 08/18/2022 18:54:10 08/13/19 23 08/18/2022 CBC (INCL UDES DIFF/ PLT) MPV 10.2 fL 7.5-12 .5 normal Not Available [address], [address], 08/18/2022 18:54:10 08/13/19 23 08/18/2022 CBC (INCL UDES DIFF/ PLT) absolute neutrophils 2442 cells /uL 1500-7 800 normal Not Available [address], [address], 08/18/2022 18:54:10 08/13/19 23 08/18/2022 CBC (INCL UDES DIFF/ PLT) absolute lymphocytes 2210 cells /uL 850-39 00 normal Not Available [address], [address], 08/18/2022 18:54:10 08/13/19 23 08/18/2022 CBC (INCL UDES DIFF/ PLT) absolute monocytes 679 cells /uL 200-95 0 normal Not Available [address], [address], 08/18/2022 18:54:10 08/13/19 23 08/18/2022 CBC (INCL UDES DIFF/ PLT) absolute eosinophils 400 cells /uL 15-500 normal Not Available [address], [address], 08/18/2022 18:54:10 08/13/19 23 08/18/2022 CBC (INCL UDES DIFF/ PLT) absolute basophils 70 cells /uL 0-200 normal Not Available [address], [address], 08/18/2022 18:54:10 08/13/19 23 08/18/2022 CBC (INCL UDES DIFF/ PLT) neutrophils 42.1 % normal Not Available [address], [address], 08/18/2022 18:54:10 08/13/19 23 08/18/2022 CBC (INCL UDES DIFF/ PLT) lymphocytes 38.1 % normal Not Available [facility] [address], [address], 08/18/2022 18:54:10 08/13/19 23 08/18/2022 CBC (INCL UDES DIFF/ PLT) monocytes 11.7 % normal Not Available [facility] [address], [address], 08/18/2022 18:54:10 08/13/19 23 08/18/2022 CBC (INCL UDES DIFF/ PLT) eosinophils 6.9 % normal Not Available [facility] [place] [address] [place], [address], 08/18/2022 18:54:10 08/13/1908/18/2022 CBC (INCL UDES DIFF/ PLT) basophils 1.2 % normal Not Available [facility] [place] [address] [place], [address], 08/18/2022 18:54:10 08/13/1908/18/2022 LYME DISEA SE AB W/REF L TO BLOT (IGG, IGM) lyme Ab screen <0.90 index normal Index Inter preta tion ----- ----- ----- ---- < 0.90 Negat lucille 0.90- 1.09 Equiv ocal > 1.09 Posit lucille As recom tracie d by the Food and Drug Admin istra tion (FDA) , all sampl es with posit lucille or equiv ocal resul ts in a Borre taylor burgd orfer i antib joyce scree n will be teste d using a blot metho d. Posit lucille or equiv ocal scree sandeep test resul ts shoul d not be inter prete d as truly posit lucille until verif ied as such using a suppl ement al assay (e.g. , B. burgd orfer i blot) . The scree sandeep test and/o r blot for B. burgd orfer i antib odies may be false ly negat lucille in early stage s of Lyme disea se, inclu ding the perio d when eryth bladimir migra ns is appar ent. Not Available [facility] [place] [address] [place], [address], 08/18/2022 18:54:11 08/13/1908/18/2022 TSH TSH 1.32 mIU/L 0.40-4 .50 normal Not Available [facility] [place] [address] [place], [address], 08/18/2022 18:54:11 08/13/19 23 08/18/2022 RICKE TTSIA (RMSF ) IGG,I GM W/REF L TO TITER S rmsf IgG NOT DETECT ED normal Not Available [facility] [place] [address] [place], [address], 08/18/2022 18:54:12 08/13/19 23 08/18/2022 RICKE TTSIA (RMSF ) IGG,I GM W/REF L TO TITER S rmsf IgM NOT DETECT ED normal REFER ENCE RANGE : NOT DETEC MEGHAN Not Available [facility] [address] [address] [place], [address], 08/18/2022 18:54:12 08/13/19 23 08/18/2022 EHRLI SALO CHAFF EENSI S (IGG, IGM) E. chaffeensis Ab IgG <1:64 normal Not Available [facility] [address] [place], [address], 08/18/2022 18:54:12 08/13/19 23 08/18/2022 EHRLI SALO CHAFF EENSI S (IGG, IGM) E. chaffeensis Ab IgM <1:20 normal Not Available [facility] [place] [address] [place], [address], 08/18/2022 18:54:12 08/13/19 23 08/18/2022 EHRLI SALO CHAFF EENSI S (IGG, IGM) interpretati on normal ANTIB JOYCE NOT DETEC MEGHAN REFER ENCE RANGE : IgG <1:64 IgM <1:20 Ehrli salo chaff eensi s has been ident ified as the causa tive agent of Human Monoc ytic Ehrli chios is (HME) . Infec meghan indiv idual s produ ce speci fic antib odies to E. chaff eensi s that can be detec meghan by an immun ofluo resce nt antib joyce (IFA) test. Singl e IgG IFA titer s of 1:64 or great er indic ate expos ure to E. chaff eensi s. A four- fold rise in IgG titer s betwe en acute and conva lesce nt sampl es and/o r the prese nce of IgM antib joyce again st E. john eensi s sugge st recen t or curre nt infec tion. This test was devel oped and its hadley tical perfo rmanc e steven cteri stics have been deter mined by [facility]. It has not been clear ed or appro val by FDA. This assay has been valid ated pursu ant to the CLIA regul ation s and is used for clini giacomo purpo ses. Not Available [facility] [address] , [place], [address], 08/18/2022 18:54:12 08/13/19 23 08/18/2022 FRANC ISELL A TULAR ENSIS AB, DA francisella tularensis Ab, Da <1:20 titer normal REFER ENCE RANGE : <1:20 INTER PRETI VE CRITE CHRISTINE: <1:20 Negat lucille 1:20 - 1:80 Equiv ocal > or = 1:160 Posit lucille In the prese nce of sommer tible sympt oms, a Franc isell a tular ensis antib joyce titer of 1:160 or great er in an acute speci men suppo rts a presu mptiv e diagn osis of tular emia. Howev er, a titer > or = 1:[address] past infec tion. An equiv ocal titer may be due to cross react lucille antib odies (Bruc mary, Yersi karan, or Prote us OX19) , past infec tion, or very recen t infec tion. A four- fold rise in titer betwe en acute and conva lesce nt sera is requi red for defin itive serol ogic diagn osis of tular emia. This test was devel oped and its hadley tical perfo rmanc e steven cteri stics have been deter mined by [facility]. It has not been clear ed or appro val by FDA. This assay has been valid ated pursu ant to the CLIA regul ation s and is used for clini giacomo purpo ses. Not Available [facility] [address], [place], [address], 08/18/2022 18:54:12 05/17/1905/16/2024 TSH, serum or plasm a TSH uIU/m L 0.49-3 .82 Not Available [facility] ([facility]) [address] [place], [address], 08/12/2022 11:30:12 Result Notes None recorded. Procedures Surgical History Date Name Laterality Status Provider Name and Address Organization Details Recorded Time 3 jr vasectomy completed Kyaw Vila MD [address] [place] [address], [address], [facility], Maria De Jesus 11/08/2022 01:21:16 Imaging Results None recorded. Procedure Notes None recorded. Medical Equipment None Reported. Allergies Allergen ID Allergen Name Allergen Category Reaction Reaction Severity Criticality Documentation Date Start Date Code Code System Note Provider Name and Address Organization Details Recorded Time 16445 shrimp allergeni c extract food Not available Not available Not available 09/21/2022 03767 2 RxNorm Comme nt: Recor ded 11/06 10:03 AM by Penny turcios, Offic e Visit ; Manjit navas; Lyndsay olivarez ce: *; ; Not Available [facility] 3 02:25:51 No known drug allergies Medications Name Sig Start Date Stop Date Status Note LastModified by Organization Details LastModified Time prednison e 20 mg tablet TAKE 1 TABLET BY MOUTH TWICE DAILY FOR 5 DAYS active Not Available Not Available No t Available Space Chamber USE DIRECTED active Not Available Not Available No t Available diclofena c sodium 75 mg tablet,de layed release two times daily 10/21 completed Recorded 11/07/19 11:06AM by Antoine Charlton DO, Office Visit; Refill Quantity : 0; Not Available Not Available Not Available Valium 10 mg tablet 1 tablet 1 hour prior to procedur e 08/19 completed Not Available Not Available Not Available albuterol sulfate HFA 90 mcg/actua tion aerosol inhaler INHALE 1 PUFF BY MOUTH EVERY 6 HOURS NEEDED FOR SHORTNES S OF BREATH OR WHEEZING active Not Available Not Available No t Available Percocet 5 mg-325 mg tablet Take it an hour prior to procedur e 08/19 completed Not Available Not Available Not Available fluticaso ne propionat e 50 mcg/actua tion nasal spray,drake pension daily 10/21 completed Recorded 11/07/19 21 10:03AM by Cherie Hoff, Office Visit; Refill Quantity : 1; Containe r; Not Available Not Available Not Available doxycycli ne hyclate 100 mg tablet TAKE 1 TABLET BY MOUTH TWICE DAILY FOR 7 DAYS active Not Available Not Available No t Available omeprazol e daily active 0; Recorded 11/07/19 10:03AM by Cherie Hoff, Office Visit; Not Available Not Available Not Available Vitals Date Recorded Body weight Respiratory rate Heart rate Oxygen saturation Oxygen saturation in Arterial blood by Pulse oximetry Systolic And Diastolic Provider Name and Address Organization Details Last Updated DateTime 3 62029.8 4 g 20 /min 77 /min 97 % 97 % 156/84 mm[Hg] RAVEN SILVA [facility] 3 11:19:28 Date Recorded Body height Body mass index (BMI) Body weight Oxygen saturation Oxygen saturation in Arterial blood by Pulse oximetry Heart rate Respiratory rate Body temperature Systolic And Diastolic Provider Name and Address Organization Details Last Updated DateTime 4 182.88 cm 26.9 kg/m2 19022.2 9 g 97 % 97 % 72 /min 20 /min 97.7 [degF] 128/70 mm[Hg] LYNNETTE HARRIS [facility] 4 16:11:17 Date Recorded Body height Body mass index (BMI) Body weight Oxygen saturation Oxygen saturation in Arterial blood by Pulse oximetry Heart rate Respiratory rate Body temperature Systolic And Diastolic Provider Name and Address Organization Details Last Updated DateTime 3 182.88 cm 28.2 kg/m2 78598.9 1 g 97 % 97 % 72 /min 18 /min 98.4 [degF] 148/84 mm[Hg] MAIRA GOMEZ [facility] 3 15:12:47 Date Recorded Body height Body mass index (BMI) Body weight Oxygen saturation Oxygen saturation in Arterial blood by Pulse oximetry Heart rate Respiratory rate Body temperature Systolic And Diastolic Provider Name and Address Organization Details Last Updated DateTime 3 182.88 cm 27.7 kg/m2 55982.8 4 g 96 % 96 % 96 /min 18 /min 97.6 [degF] 138/76 mm[Hg] MAIRA GOMEZ [facility] 3 16:32:19 Social History Question Answer Notes LastModified by [employer] Details LastModified Time Tobacco Smoking Status Never Smoker MAIRA cage [facility] 10/21/2022 15:15:11 How Many Children Do You Have? 2 Information not available 10/21/2022 What Is Your Relationship Status? Information not available 10/21/2022 Are You Sexually Active? Yes Information not available 10/21/2022 Sex: Unknown Functional Status Question Answer Note LastModified by Organ[employer] Details LastModified Time Do you use any illicit or recreational drugs? No Information not available 10/21/2022 What is your level of alcohol consumption? Occasional Information not available 10/21/2022 Are you able to care for yourself independently? Yes Information not available 10/21/2022 Mental Status None recorded. Family History Relationship Description Onset Age of this Age Resolved Age Notes LastModified by Organization Details LastModified Time Father No current problems or disability [email or web address] Not available 0 10/21/2022 15:14:41 Mother No current problems or disability [email or web address] Not available 0 10/21/2022 15:14:41 Notes:Family Members In Gene ral: Myocardial Infarction; on fathers side Medical History No medical history recorded. Past Encounters Encounter ID Performer Location Encounter Start Date Encounter Closed Date Diagnosis/Indication Diagnosis SNOMED-CT Code Diagnosis ICD10 Code Diagnosis IMO Codes Diagnosis Note [id number] Antoine Charlton DO [facility] ([facility]) [address] [place] [address] 08/12/2022 11:14:42 08/12/2022 19:53:00 Tick bite 79779733 W57.XXXA Fatigue 94203567 R53.83 Hyperlipid emia screening 855405495 Z13.220 Vasectomy planned 643232 000 Z78.9 [id number] Kyaw Vila MD [facility] ([facility]) [address] [place] [phone] 10/21/2022 14:38:43 10/21/2022 16:47:12 Vasectomy requested 172824620 Z30.2 [id number] Kyaw Vila MD [facility] ([facility]) [address] [place] [phone] 11/07/2022 16:01:18 11/14/2022 13:56:32 Vasectomy requested [id number] Z30.2 [id number] ZAHIDA MCNAMARA PA-C [facility] ([facility]) [address] [place] [phone] 08/20/2023 15:46:00 08/20/2023 18:13:35 Community acquired pneumonia 626271907 J18.9 resolving. pt is almost back to baseline. Ok to go back to workHospit al records reviewed and meds reconciled . Health Concerns Section Related Observation LastModified by Organization Detai ls LastModified Time None Recorded Concern Status LastModified by Organization Details LastModified Time None Recorded Advance Directives Directive None Recorded Payers Insurance Date Sequence Insurance Name Policy Number Policy Cortez Covered Member ID Cortez Member ID Guarantor Name 10/04/2023 [place] Farhat Palmer [id number] Farhat Palmer 10/04/2023 [place] [facility] Farhat Palmer [id number] Farhat Palmer 08/12/2022 1 *SELF PAY* Pr carole Palmer Notes Date Note Type Note Provider Name and Address Organization Details Recorded Time 08/12/2022 text/html Care Management - GeneralReported by PatientHPIFor prognosis, patient reportsexpected outcome: improveandprognosis: good. For lifestyle changes, patient reportsexercises regularly.ROS as noted in the HPI Antoine Charlton DO [address] [place], [phone], [facility] 08/12/2022 11:37:18 10/21/2022 text/html Pt is here for a vasectomy consult. Kyaw Vila MD [address] [place] [address], [phone], [facility] 10/21/2022 15:52:29 11/07/2022 text/html Pt is here for a vasectomy. Kyaw Vila MD [address] [place] [address], [phone], [facility] 11/08/2022 01:22:27 08/20/2023 text/html Upper Respirator y SymptomsReported by PatientUpper Respiratory SymptomsFor quality, patient reportsproductive coughandcongested. For location, patient reportschest. For severity, patient reportsmoderate. For onset/timing, patient reportssudden. hospital follow up 08-11-23 pneumoniaHe is feeling much better and finishing the last of his antibiotics.still mild cough but no fever. ZAHIDA MCNAMARA PA-C [address] [place] [address], [phone], [facility] 09/04/2023 17:15:31
[2024-12-16 16:05] VITALS: BP 159/86; PULSE 79; RESP 18; TEMP 36.8; O2SAT 99
[2024-12-16 16:08] VITALS: BP 153/95; PULSE 71; O2SAT 98
--- NOTE | 2024-12-16 16:29 | W.ED.SKABFB ---
HPI - Skin/Abscess/Foreign Bdy General: Chief complaint: Skin/Abscess/Foreign Body Stated complaint: insect bite lt shoulder back Time Seen by Provider: 12/16/24 16:13 History of Present Illness: Patient is a 52-year-old male with history of reflux, HLD, OA, presents to the emergency room due to bite on his left scapula. He did not see the insect/spider/tick that bit him. He believes this happened Friday night. He does see spiders at his home. Friday, he noted some pain on his left posterior scapula. His partner checked this area, and saw all the small scab, with minimal swelling. There is no redness around this area. He does have some localized pain. History: Previous history of ehrlichia systemic, several years ago. Associated symptoms: Deny chills, fever(s), nausea or vomiting Related Data Home Medications ?Medication ?Instructions ?Recorded ?Confirmed celecoxib 200 mg capsule (Celebrex) 200 mg PO DAILY 12/25/23 05/18/24 omeprazole 20 mg capsule,delayed 20 mg PO DAILY 12/25/23 05/18/24 release atorvastatin 20 mg tablet 20 mg PO BEDTIME 02/26/24 05/18/24 Previous Rx's ?Medication ?Instructions ?Recorded bilateral velcro wrist braces #1 ea 05/18/24 doxycycline hyclate 100 mg capsule 100 mg PO BID 21 days #42 caps 12/16/24 Allergies Allergy/AdvReac Type Severity Reaction Status Date / Time shellfish derived Allergy ALGY-Anaphy Verified 05/18/24 06:57 laxis Review of Systems General: Reports: 10 or more systems reviewed and unremarkable except in HPI and below Const: Denies: fever(s) or chills Card: Denies: chest pain or dyspnea on exertion Resp: Denies: dyspnea or productive cough GI: Denies: abdominal pain, nausea or vomiting Musc: Reports: joint pain; Denies: joint swelling or limited range of motion Skin/Breast: Reports: rash, pruritus, skin tenderness, skin swelling (local) and new lesions; Denies: changes in skin color or dry skin Neuro: Denies: numbness in extremities or weakness in extremities Psych: Denies: anxiety Emanuel/Lymph: Denies: easy bruising or easy bleeding PFS ED PFSH: Medical History (Updated 12/16/24 @ 16:31 by NACHO Ziegler) No pertinent past medical history Surgical History History of vasectomy Family History Other No pertinent family history Social History Smoking and tobacco/nicotine status: former use of tobacco/nicotine Alcohol intake: current Alcohol intake frequency: 3 or more drinks per day Substance/Drug Use: never Physical Exam Const: COMMON NORMALS: no acute distress, average body habitus and patient oriented x3 HENMT: COMMON NORMALS: normocephalic and atraumatic HEAD & SCALP: normocephalic and atraumatic Lymph: LYMPHATIC: no lymphadenopathy noted Chest: COMMONS NORMALS: normal inspection of the chest and normal palpation of entire chest wall Resp: COMMON NORMALS: normal respiratory effort, No retractions and No use of accessory muscles Cardio: COMMON NORMALS: regular rate and regular rhythm RATE: regular rate RHYTHM: regular rhythm GI: COMMON NORMALS: Normal to inspection, nondistended, normoactive bowel sounds present and Soft to palpation PALPATION: Yes Soft to palpation Back/Pelvis: OTHER: Patient with small superficial scab to left distal scapula winging with mild localized swelling without redness, and mild tenderness. No induration. BACK IMAGE (MALE):  1. Small superficial scab. Mild localized swelling without redness. Neuro: COMMON NORMALS: patient oriented x3 Psych: COMMON NORMALS: mental status grossly normal, Normal thought process present, cooperative, normal affect and speech normal SPEECH: Yes normal speech THOUGHT PROCESS: Normal thought process present Course Vital Signs: Vital signs: Vital Signs Temperature 98.2 F 12/16/24 16:05 Pulse Rate 71 12/16/24 16:08 Respiratory Rate 18 12/16/24 16:05 Blood Pressure 153/95 12/16/24 16:08 Pulse Oximetry 98 12/16/24 16:08 Oxygen Delivery Me thod Room Air 12/16/24 16:08 MDM - Skin/Abscess/Foreign Bdy Medicial Decision Making Patient is 54-year-old male that reports to the emergency room due to an area to his left scapula. He has some localized pain, tenderness. This appears to be insect bite versus tickborne. He does not have the target lesion around this. The proper ehrichia PCR is not available at this facility, tularemia is not available at this facility, and it does not appear to be consistent with [place] spotted fever that is available. There is no need to run the testing, and we will treat for 21 days as tickborne illness, that will also cover localized cellulitis and MRSA. Explained all this to their understanding to patient, and partner. All their questions answered to their satisfaction. Medical Records I reviewed the patient's medical records. No radiology studies performed this visit Discharge Plan Discharge Patient Disposition: Home Clinical Impression: Tick-borne disease Abscess of skin or subcutaneous tissue Qualifiers: Site of cutaneous abscess: trunk Site of cutaneous abscess of trunk: unspecified site Qualified Code(s): L02.219 - Cutaneous abscess of trunk, unspecified Condition: Stable Prescriptions: New doxycycline hyclate 100 mg capsule 100 mg PO BID 21 Days Qty: 42 0RF No Action omeprazole 20 mg capsule,delayed release(DR/EC) 20 mg PO DAILY celecoxib [Celebrex] 200 mg capsule 200 mg PO DAILY (DME) bilateral velcro wrist braces See Rx Instructions .Route .MEDSUPPLY Qty: 1 0RF Rx Instructions: As directed atorvastatin 20 mg tablet 20 mg PO BEDTIME Discharge Orders: Discharge ED (Routine); Ordered 12/16/24 Ordered By: Lea Ortiz Referrals: Gino Myers MD [Primary Care Provider, Family Practice] Patient Instructions: Cellulitis (ED), Tick Bite (ED), Black Spider Bite (ED), Patient Portal & Jimmy Instructions Activity Restrictions/Additional Instructions: - Doxycycline was sent to the pharmacy. Pick this up and start promptly. Make sure you take this with food, or if you do not use a little bit of food, you will have nausea, and think you are allergic to it. This is a side effect, not an allergy. Make sure you have to use a probiotic daily or active culture yogurt to avoid infectious diarrhea - As we discussed this is 3 weeks of therapy to cover for tickborne illness, as well as cellulitis, and spider bite. The tick panel is not set up properly, and there is no way to officially tell you if this is a tickborne illness. -Please return to ED if you get systemic symptoms: Fever, chills, fever defined as greater than 100.4 ?F, tiredness, lethargy. - Drink plenty of noncaffeinated beverages. - Tylenol and ibuprofen for pain. Thank you for choosing [facility] for your healthcare needs today. You have been screened and evaluated and felt safe for discharge. Health conditions do change or evolve sometimes and as such it is important that you follow up with your Primary Doctor to be re checked, 3-5 days is a general good time frame for follow up. You are always welcome to return to the ED for re assessment if your symptoms are worsening or you have new concerns Print Language: Belarusian Coding Level of Care Code ED [employer] for Tracy Koo
[2024-12-16 17:34] VITALS: BP 161/85; PULSE 62; O2SAT 97
== END 2024-12-16 16:42 | disposition home or self-care (01) ==
PROVIDERS: Emergency Provider Physician Assistant; PCP Family Medicine
DX: L02.219 Cutaneous abscess of trunk, unspecified (principal); Z87.891 Personal history of nicotine dependence
CPT/HCPCS: 99283